=== PATIENT | female | born 1945 | race Caucasian/White ===

== ENCOUNTER 2017-08-02 18:56 | Inpatient (IN) ==
[2017-08-02] MEDS ORDERED: SODIUM CHLORIDE 0.9% 2,000 ML IV STA (19:20)
[2017-08-02 19:34] LABS: Basophils # 0.1 10*3/uL (0.0-0.2); Basophils % 0.5 % (0.0-0.8); Eosinophils % 0.1 % (0.00-10.9); Hematocrit 36.8 VOL% (35.7-47.0); Hemoglobin 11.5 GM/DL (12.0-16.0); Immature Granulocytes % 1.3 %; Immature Granulocytes Absolute 0.19 #; Lymphocytes % 6.9 % (21.3-54.2); Mean Corpuscular HGB Conc 31.3 GM/DL (32-36); Mean Corpuscular Hemoglobin 32 PG (27-34); Mean Corpuscular Volume 101.4 FL (87-102); Mean Platelet Volume 10.2 FL (9.6-12.0); Monocytes # 0.7 10*3/uL (0.11-0.8); Monocytes % 4.6 % (1.7-12.7); Neutrophils # 12.7 10*3/uL (1.4-7.4); Neutrophils % 86.6 % (38.7-73.9); Platelet Count 269 T/CUMM (130-400); Red Blood Count 3.63 MC/CUMM (3.8-5.5); Red Cell Distribution Width 12.1 % (9.3-17.3); White Blood Count 14.7 T/CUMM (4-12)
[2017-08-02 20:02] LABS: Albumin 3.6 G/DL (3.4-5.0); Bilirubin,Total 0.7 MG/DL (0.2-1.0); Calcium 9.3 MG/DL (8.5-10.1); Osmolality,Calculated 309.5 MOS/KG (273-304); Total Protein 6.4 G/DL (6.4-8.3)
[2017-08-02 20:04] LABS: Allen Test Positive
[2017-08-02] MEDS ORDERED: INSULIN REGULAR 100 UNIT/ML IV STA (20:05)
[2017-08-02 20:06] LABS: ABG Base Excess -25.3 MMOL/L (-2.5-2.5); ABG Oxygen Saturation 98.3 % (95-100); ABG PO2 173.7 MM HG (80-95); ABG TCO2 4.5 MMOL/L (23-27)
[2017-08-02 20:11] LABS: ABG PCO2 16.2 MM HG (35-48); ABG PH 7.012 (7.35-7.45)
[2017-08-02] MEDS ORDERED: SODIUM BICARBONATE 50 MEQ/50 ML VIAL IV STA (20:12)
[2017-08-02] MEDS ORDERED: SODIUM BICARBONATE 50 MEQ/50 ML SYRINGE IV ONE (20:19)
[2017-08-02] MEDS ORDERED: INSULIN REGULAR 100 UNIT/ML ONE (20:20)
[2017-08-02] MEDS ORDERED: SODIUM PHOSPHATE INJ 16.4 MMOL in SODIUM CHLORIDE 0.9% 250 ML IV PRN (20:52)
[2017-08-02] MEDS ORDERED: MAGNESIUM SULF RIDER 2 GM in PREMIX 1 EACH IV PRN (20:52)
[2017-08-02] MEDS ORDERED: SODIUM BICARB INJ 100 MEQ in STERILE WATER INJ 400 ML IV PRN (20:52)
[2017-08-02] MEDS ORDERED: DEXTROSE 50% 25 GM/50 ML VIAL IV PRN ×2 (20:52)
[2017-08-02] MEDS ORDERED: INSULIN REGULAR 100 UNIT/ML IV ONE ×2 (20:52→22:28)
[2017-08-02] MEDS ORDERED: SODIUM CHLORIDE 0.9% 1,000 ML IV ONE (20:52)
[2017-08-02] MEDS ORDERED: POTASSIUM CHLORIDE RIDER 10 MEQ in PREMIX 1 EACH IV PRN (20:52)
[2017-08-02] MEDS ORDERED: MAGNESIUM SULF RIDER 4 GM in PREMIX 1 EACH IV PRN (20:52)
[2017-08-02 20:56] LABS: Amorphous Crystals,Urine Occasional /HPF (Few); Apearance,Urine Slightly Hazy (Clear); Bilirubin,Urine Negative (Negative); Blood, Urine Small mg/dL (Negative); Glucose,Urine (UA) >=500 mg/dL (Negative); Hyaline Casts,Urine 1 /LPF (0-3); Ketones,Urine 20 mg/dL (Negative); Mucus,Urine Occasional /LPF (Occasional); Nitrite,Urine Negative (Negative); Protein,Urine Negative; RBC,Urine <1 /HPF (0-4); Urine Color Yellow (Yellow); Urine Specific Gravity 1.014 (1.001-1.035); Urine Urobilinogen < 2.0 EU/DL (0.2-1.0); WBC,Urine 1 /HPF (0-6)
[2017-08-02 20:57] LABS: Barbiturates Screen,Urine Negative (Negative); Benzodiazepines Screen,Urine Negative (Negative); Cannabinoid Screen,Urine Negative (Negative); Opiate Screen,Urine Negative (Negative); Phencyclidine Screen,Urine Negative (Negative)
[2017-08-02 21:07] LABS: Sedimentation Rate-Westergren 27 MM/HR (0-30)
[2017-08-02] MEDS: INSULIN REGULAR DRIP 100 ML IV SCH (21:50)
[2017-08-02] MEDS: ENOXAPARIN 30 MG/0.3 ML SYRINGE SUBCUT SCH (22:00)
[2017-08-02 22:17] LABS: Magnesium 2.1 MG/DL (1.8-2.4)
[2017-08-02 22:21] LABS: Calcium 8.3 MG/DL (8.5-10.1); Osmolality,Calculated 319.2 MOS/KG (273-304)
[2017-08-02 22:26] LABS: Free T4 (Free Thyroxine) 1.56 NG/DL (0.76-1.46); Thyroid Stimulating Hormone 0.101 uIU/ml (0.358-3.74); Troponin I Only 0.018 NG/ML (0.00-0.045)
[2017-08-02] MEDS: SODIUM CHLORIDE 0.9% 1,000 ML IV SCH (22:53)
[2017-08-03] MEDS: SODIUM CHLORIDE 0.9% 1,000 ML IV SCH ×3 (01:04→13:41)
[2017-08-03 01:13] LABS: Basophils % 0.1 % (0.0-0.8); Eosinophils % 0.1 % (0.00-10.9); Hematocrit 31.3 VOL% (35.7-47.0); Hemoglobin 10.6 GM/DL (12.0-16.0); Immature Granulocytes % 0.7 %; Lymphocytes # 0.6 10*3/uL (1.4-4.0); Lymphocytes % 3.8 % (21.3-54.2); Mean Corpuscular HGB Conc 33.9 GM/DL (32-36); Mean Corpuscular Hemoglobin 32 PG (27-34); Mean Corpuscular Volume 94.3 FL (87-102); Mean Platelet Volume 9.8 FL (9.6-12.0); Monocytes # 1.4 10*3/uL (0.11-0.8); Monocytes % 9.2 % (1.7-12.7); Neutrophils # 12.9 10*3/uL (1.4-7.4); Neutrophils % 86.1 % (38.7-73.9); Platelet Count 215 T/CUMM (130-400); Red Blood Count 3.32 MC/CUMM (3.8-5.5); White Blood Count 14.9 T/CUMM (4-12)
[2017-08-03] MEDS ORDERED: SODIUM CHLORIDE 0.9% 1,000 ML IV SCH (01:36)
[2017-08-03 01:42] LABS: Lymphocytes 2 % (20-55); Myelocytes 1 %; Segmented Neutrophils 92 % (50-85)
[2017-08-03 01:43] LABS: Calcium 7.8 MG/DL (8.5-10.1); Osmolality,Calculated 318.3 MOS/KG (273-304); Platelet Estimate Normal; Potassium 4.3 MMOL/L (3.5-5.1)
[2017-08-03 01:44] LABS: Total Cells Counted 100
[2017-08-03 02:07] LABS: Magnesium 1.8 MG/DL (1.8-2.4); Phosphorous 4.9 MG/DL (2.5-4.9)
[2017-08-03] MEDS ORDERED: ONDANSETRON 4 MG/2 ML VIAL IV PRN (02:12)
[2017-08-03 03:56] LABS: ABG Base Excess -20.9 MMOL/L (-2.5-2.5); ABG HCO3 9.3 MMOL/L (20-26); ABG Oxygen Saturation 98.2 % (95-100); ABG TCO2 6.6 MMOL/L (23-27); Allen Test Positive; Pt O2 Delivery Device Room Air
[2017-08-03 04:04] LABS: ABG PCO2 20.1 MM HG (35-48); ABG PH 7.148 (7.35-7.45)
[2017-08-03] MEDS ORDERED: INSULIN REGULAR 100 UNIT/ML IV ONE (05:36)
[2017-08-03 06:44] LABS: Calcium 7.9 MG/DL (8.5-10.1); Osmolality,Calculated 314.4 MOS/KG (273-304); Potassium 4.6 MMOL/L (3.5-5.1)
[2017-08-03] MEDS ORDERED: LEVOTHYROXINE 150 MCG TABLET PO SCH (09:00)
[2017-08-03 09:03] LABS: Calcium 7.8 MG/DL (8.5-10.1)
[2017-08-03] MEDS: SODIUM CHLOR 0.45% KCL 20 MEQ 20 MEQ/1,000 ML BAG IV SCH ×2 (09:35→19:02)
[2017-08-03 13:22] LABS: Calcium 8.1 MG/DL (8.5-10.1); Osmolality,Calculated 300.8 MOS/KG (273-304)
[2017-08-03] MEDS: DEXTROSE 5% KCL 20 MEQ 20 MEQ/1,000 ML BAG IV SCH (13:50)
[2017-08-03 17:01] LABS: Calcium 8.1 MG/DL (8.5-10.1); Osmolality,Calculated 295.8 MOS/KG (273-304); Potassium 3.7 MMOL/L (3.5-5.1)
[2017-08-03] MEDS: SODIUM CHLORIDE 0.45% 1,000 ML IV SCH (19:02)
[2017-08-03] MEDS: ENOXAPARIN 30 MG/0.3 ML SYRINGE SUBCUT SCH (21:01)
[2017-08-03 23:09] LABS: Osmolality,Calculated 289.1 MOS/KG (273-304); Potassium 4.3 MMOL/L (3.5-5.1)
[2017-08-04] MEDS ORDERED: INSULIN REGULAR 100 UNIT/ML ONE (00:31)
[2017-08-04] MEDS: INSULIN REGULAR 100 UNIT/ML SUBCUT SCH ×4 (00:38→14:16)
[2017-08-04] MEDS: DEXT 5% NACL 0.45% KCL 20 MEQ 20 MEQ/1,000 ML BAG IV SCH ×3 (00:38→18:39)
[2017-08-04] MEDS: SODIUM CHLORIDE 0.45% 1,000 ML IV SCH ×4 (00:41→16:19)
[2017-08-04] MEDS: SODIUM CHLOR 0.45% KCL 20 MEQ 20 MEQ/1,000 ML BAG IV SCH ×3 (01:39→18:38)
[2017-08-04] MEDS: INSULIN REGULAR DRIP 100 ML IV SCH (02:49)
[2017-08-04] MEDS: DEXTROSE 5% KCL 20 MEQ 20 MEQ/1,000 ML BAG IV SCH (02:49)
[2017-08-04 05:34] LABS: Calcium 8.5 MG/DL (8.5-10.1); Magnesium 1.6 MG/DL (1.8-2.4); Osmolality,Calculated 291.3 MOS/KG (273-304); Potassium 4.3 MMOL/L (3.5-5.1)
[2017-08-04] MEDS ORDERED: DILTIAZEM 50 MG/10 ML VIAL IV ONE (06:12)
[2017-08-04] MEDS ORDERED: SODIUM CHLORIDE 0.9% 100 ML IV ONE (06:13)
[2017-08-04] MEDS ORDERED: DILTIAZEM 100 MG VIAL.ADD IV ONE (06:13)
[2017-08-04] MEDS: DILTIAZEM INJ 100 MG in SODIUM CHLORIDE 0.9% 100 ML IV SCH (06:18)
[2017-08-04] MEDS ORDERED: INSULIN REGULAR DRIP 100 ML IV SCH (11:30)
[2017-08-04 12:02] LABS: Calcium 8.4 MG/DL (8.5-10.1); Osmolality,Calculated 292.1 MOS/KG (273-304); Potassium 4.2 MMOL/L (3.5-5.1)
[2017-08-04] MEDS: SOTALOL 80 MG TABLET PO SCH ×2 (14:24→20:48)
[2017-08-04 14:50] LABS: Calcium 8.2 MG/DL (8.5-10.1); Osmolality,Calculated 289.8 MOS/KG (273-304)
[2017-08-04] MEDS ORDERED: DEXTROSE 50% 25 GM/50 ML VIAL IV PRN ×3 (15:53→16:25)
[2017-08-04] MEDS ORDERED: GLUCAGON 1 MG VIAL IM PRN ×3 (15:53→16:25)
[2017-08-04] MEDS ORDERED: INSULIN REGULAR 100 UNIT/ML SUBCUT SCH (15:55)
[2017-08-04] MEDS: INSULIN GLARGINE 100 UNIT/ML SUBCUT SCH (16:37)
[2017-08-04] MEDS: INSULIN LISPRO 100 UNIT/ML SUBCUT SCH ×3 (16:38→23:29)
[2017-08-04 19:04] LABS: Calcium 8.4 MG/DL (8.5-10.1); Osmolality,Calculated 287.1 MOS/KG (273-304); Potassium 4.1 MMOL/L (3.5-5.1)
[2017-08-04] MEDS ORDERED: ENOXAPARIN 40 MG/0.4 ML SYRINGE SUBCUT SCH (21:00)
[2017-08-04] MEDS ORDERED: PHENOL 1.4% THROAT SPRAY 177 ML BOTTLE PO PRN (23:34)
[2017-08-05 00:12] LABS: Calcium 8.7 MG/DL (8.5-10.1); Osmolality,Calculated 281.3 MOS/KG (273-304); Potassium 3.9 MMOL/L (3.5-5.1)
[2017-08-05 03:42] LABS: Calcium 8.8 MG/DL (8.5-10.1); Osmolality,Calculated 282.1 MOS/KG (273-304); Potassium 4.3 MMOL/L (3.5-5.1)
[2017-08-05] MEDS: INSULIN LISPRO 100 UNIT/ML SUBCUT SCH ×6 (04:51→21:30)
[2017-08-05] MEDS ORDERED: INSULIN LISPRO 100 UNIT/ML SUBCUT SCH ×2 (05:10→06:00)
[2017-08-05 05:36] LABS: Calcium 8.6 MG/DL (8.5-10.1); Osmolality,Calculated 282.1 MOS/KG (273-304)
[2017-08-05] MEDS: hydrALAZINE 20 MG/1 ML VIAL IV PRN ×2 (05:51→12:13)
[2017-08-05] MEDS: SODIUM CHLORIDE 0.45% 1,000 ML IV SCH (06:22)
[2017-08-05] MEDS: DILTIAZEM INJ 100 MG in SODIUM CHLORIDE 0.9% 100 ML IV SCH (06:32)
[2017-08-05 07:52] LABS: Calcium 8.2 MG/DL (8.5-10.1); Osmolality,Calculated 279.3 MOS/KG (273-304); Potassium 3.8 MMOL/L (3.5-5.1)
[2017-08-05] MEDS ORDERED: ACETAMINOPHEN 325 MG TABLET PO PRN (08:46)
[2017-08-05] MEDS: SOTALOL 80 MG TABLET PO SCH ×2 (09:19→20:34)
[2017-08-05] MEDS: APIXABAN 5 MG TABLET PO SCH ×2 (09:20→20:34)
[2017-08-05] MEDS: INSULIN GLARGINE 100 UNIT/ML SUBCUT SCH (10:44)
[2017-08-05] MEDS ORDERED: INSULIN GLARGINE 100 UNIT/ML SUBCUT SCH (21:00)
[2017-08-06] MEDS: INSULIN LISPRO 100 UNIT/ML SUBCUT SCH ×3 (02:21→10:36)
[2017-08-06] MEDS: SOTALOL 80 MG TABLET PO SCH (08:14)
[2017-08-06] MEDS: APIXABAN 5 MG TABLET PO SCH (08:14)
[2017-08-06 08:18] VITALS: BP 168/85
== END 2017-08-06 11:20 | disposition home or self-care (01) | DRG 639 ==
LOC: EDUNIT# → EDBD → N.ED 18:56 → SUATTDRO 20:20 → N.EDINP 20:20 → N.CC 20:52
PROVIDERS: ADMIT Hospitalist; ATTEND Internal Medicine

== ENCOUNTER 2017-08-08 22:39 | Inpatient (IN) ==
[2017-08-08] MEDS ORDERED: SODIUM CHLORIDE 0.9% 1,000 ML IV STA (23:11)
[2017-08-08] MEDS ORDERED: METOCLOPRAMIDE 10 MG/2 ML VIAL IV STA (23:11)
[2017-08-08] MEDS ORDERED: LEVOFLOXACIN INJ 750 MG in PREMIX 1 EACH IV STA (23:11)
[2017-08-08] MEDS ORDERED: ONDANSETRON 4 MG/2 ML VIAL IV STA (23:11)
[2017-08-08] MEDS ORDERED: INSULIN REGULAR 100 UNIT/ML IV STA (23:16)
[2017-08-08] MEDS ORDERED: LEVOFLOXACIN INJ 150 ML IV ONE (23:29)
[2017-08-08] MEDS ORDERED: ONDANSETRON 4 MG/2 ML VIAL ONE (23:29)
[2017-08-08] MEDS ORDERED: METOCLOPRAMIDE 10 MG/2 ML VIAL ONE (23:29)
[2017-08-08] MEDS ORDERED: INSULIN REGULAR 100 UNIT/ML ONE (23:33)
[2017-08-09 02:10] LABS: PT Patient Result 10.7 SECS; Partial Thromboplastin Time 26.4 SECS (0-40)
[2017-08-09 02:13] LABS: Basophils % 0.3 % (0.0-0.8); Eosinophils % 0.1 % (0.00-10.9); Hematocrit 30.9 VOL% (35.7-47.0); Hemoglobin 10.4 GM/DL (12.0-16.0); Immature Granulocytes % 1.4 %; Immature Granulocytes Absolute 0.15 #; Lymphocytes # 1.6 10*3/uL (1.4-4.0); Lymphocytes % 14.8 % (21.3-54.2); Mean Corpuscular HGB Conc 33.7 GM/DL (32-36); Mean Corpuscular Hemoglobin 31 PG (27-34); Mean Corpuscular Volume 93.1 FL (87-102); Mean Platelet Volume 9.9 FL (9.6-12.0); Monocytes % 9.5 % (1.7-12.7); Neutrophils # 7.9 10*3/uL (1.4-7.4); Neutrophils % 73.9 % (38.7-73.9); Platelet Count 264 T/CUMM (130-400); Red Blood Count 3.32 MC/CUMM (3.8-5.5); Red Cell Distribution Width 12.3 % (9.3-17.3); White Blood Count 10.7 T/CUMM (4-12)
[2017-08-09 02:20] LABS: Lactic Acid 1.8 MMOL/L (0.4-2.0)
[2017-08-09 02:27] LABS: Alanine Aminotransferase 16 U/L (13-56); Albumin 2.8 G/DL (3.4-5.0); Alkaline Phosphatase 103 U/L (45-117); Aspartate Amino Transferase 15 U/L (0-37); Blood Urea Nitrogen 31 MG/DL (7-18); Calcium 8.9 MG/DL (8.5-10.1); Glucose 272 MG/DL (74-106); Osmolality,Calculated 282.4 MOS/KG (273-304); Potassium 3.8 MMOL/L (3.5-5.1); Sodium 133 MMOL/L (136-145); Total Protein 5.4 G/DL (6.4-8.3)
[2017-08-09 03:57] LABS: VBG Base Excess -6.4 MEQ/L (0-4); VBG HCO3 18.2 MEQ/L (24-28); VBG Oxygen Saturation 98.9 %; VBG PCO2 32.7 MMHG (41-51); VBG PH 7.363; VBG PO2 232.4 MMHG (17-40)
[2017-08-09] MEDS ORDERED: ONDANSETRON 4 MG/2 ML VIAL IV PRN (05:43)
[2017-08-09] MEDS ORDERED: ACETAMINOPHEN 325 MG TABLET PO PRN (05:43)
[2017-08-09] MEDS ORDERED: GLUCAGON 1 MG VIAL IM PRN ×2 (05:53→16:47)
[2017-08-09] MEDS ORDERED: DEXTROSE 50% 25 GM/50 ML VIAL IV PRN ×3 (05:53→16:47)
[2017-08-09] MEDS ORDERED: LORATADINE 10 MG TABLET PO PRN (05:56)
[2017-08-09] MEDS ORDERED: MELOXICAM 7.5 MG TABLET PO PRN (05:56)
[2017-08-09] MEDS ORDERED: PANTOPRAZOLE 40 MG TABLET PO PRN (05:56)
[2017-08-09] MEDS: SODIUM CHLORIDE 0.9% 1,000 ML IV SCH ×3 (07:30→20:56)
[2017-08-09 07:32] LABS: Calcium 8.3 MG/DL (8.5-10.1)
[2017-08-09] MEDS: LEVOTHYROXINE 150 MCG TABLET PO SCH (07:38)
[2017-08-09] MEDS: ASPIRIN EC 81 MG TABLET PO SCH (08:53)
[2017-08-09] MEDS: APIXABAN 5 MG TABLET PO SCH ×2 (08:53→20:58)
[2017-08-09] MEDS: INSULIN LISPRO 100 UNIT/ML SUBCUT SCH ×8 (08:53→23:50)
[2017-08-09] MEDS: ALPRAZolam 0.5 MG TABLET PO SCH ×2 (08:54→09:07)
[2017-08-09] MEDS: SOTALOL 80 MG TABLET PO SCH ×2 (08:58→20:57)
[2017-08-09] MEDS ORDERED: MAGNESIUM OXIDE 400 MG TABLET PO SCH (09:00)
[2017-08-09 11:30] LABS: Calcium 8.7 MG/DL (8.5-10.1); Osmolality,Calculated 280.2 MOS/KG (273-304); Potassium 4.1 MMOL/L (3.5-5.1)
[2017-08-09] MEDS ORDERED: INSULIN REGULAR DRIP 100 ML IV SCH (16:47)
[2017-08-09] MEDS ORDERED: SODIUM PHOSPHATE INJ 18.7 MMOL in SODIUM CHLORIDE 0.9% 250 ML IV PRN (16:47)
[2017-08-09] MEDS ORDERED: MAGNESIUM SULF RIDER 4 GM in PREMIX 1 EACH IV PRN (16:47)
[2017-08-09] MEDS ORDERED: SODIUM CHLORIDE 0.9% 1,000 ML IV ONE (16:47)
[2017-08-09] MEDS ORDERED: POTASSIUM CHLORIDE RIDER 10 MEQ in PREMIX 1 EACH IV PRN (16:47)
[2017-08-09] MEDS ORDERED: SODIUM BICARB INJ 100 MEQ in STERILE WATER INJ 400 ML IV PRN (16:47)
[2017-08-09] MEDS: DEXTROSE 5% NACL 0.9% 1,000 ML IV SCH ×2 (17:15→23:51)
[2017-08-09 18:25] LABS: Magnesium 1.3 MG/DL (1.8-2.4); Phosphorous 1.5 MG/DL (2.5-4.9)
[2017-08-09 18:26] LABS: Calcium 8.3 MG/DL (8.5-10.1); Osmolality,Calculated 273.8 MOS/KG (273-304); Potassium 3.5 MMOL/L (3.5-5.1)
[2017-08-09] MEDS: MAGNESIUM SULF RIDER 2 GM in PREMIX 1 EACH IV PRN ×2 (18:55→21:04)
[2017-08-09] MEDS ORDERED: SODIUM CHLORIDE 0.9% 1,000 ML IV SCH (20:07)
[2017-08-09] MEDS ORDERED: POTASSIUM CHLORIDE 20 MEQ TABLET PO PRN (20:36)
[2017-08-09] MEDS ORDERED: INSULIN GLARGINE 100 UNIT/ML SUBCUT SCH (21:00)
[2017-08-10 01:24] LABS: Osmolality,Calculated 279.7 MOS/KG (273-304); Potassium 3.9 MMOL/L (3.5-5.1)
[2017-08-10 04:03] LABS: Apearance,Urine CLEAR (Clear); Bacteria,Urine Occasional /HPF (Few); Bilirubin,Urine Negative (Negative); Blood, Urine Small mg/dL (Negative); Glucose,Urine (UA) 150 mg/dL (Negative); Ketones,Urine 20 mg/dL (Negative); Nitrite,Urine Negative (Negative); Protein,Urine Negative; RBC,Urine 1 /HPF (0-4); Squamous Epithelial Cell,Urine Occasional /HPF (0-10); Urine Color Yellow (Yellow); Urine Urobilinogen < 2.0 EU/DL (0.2-1.0); WBC,Urine 4 /HPF (0-6)
[2017-08-10] MEDS: SODIUM CHLORIDE 0.9% 1,000 ML IV SCH (04:07)
[2017-08-10] MEDS: INSULIN LISPRO 100 UNIT/ML SUBCUT SCH ×5 (04:07→21:12)
[2017-08-10 06:05] LABS: Basophils % 0.2 % (0.0-0.8); Eosinophils # 0.1 10*3/uL (0.0-0.87); Eosinophils % 1.6 % (0.00-10.9); Hematocrit 28.2 VOL% (35.7-47.0); Hemoglobin 9.4 GM/DL (12.0-16.0); Immature Granulocytes % 0.5 %; Immature Granulocytes Absolute 0.03 #; Lymphocytes # 1.7 10*3/uL (1.4-4.0); Lymphocytes % 29.9 % (21.3-54.2); Mean Corpuscular HGB Conc 33.3 GM/DL (32-36); Mean Corpuscular Hemoglobin 32 PG (27-34); Mean Corpuscular Volume 94.6 FL (87-102); Mean Platelet Volume 9.2 FL (9.6-12.0); Monocytes # 0.5 10*3/uL (0.11-0.8); Monocytes % 8.9 % (1.7-12.7); Neutrophils # 3.3 10*3/uL (1.4-7.4); Neutrophils % 58.9 % (38.7-73.9); Platelet Count 210 T/CUMM (130-400); Red Blood Count 2.98 MC/CUMM (3.8-5.5); Red Cell Distribution Width 12.7 % (9.3-17.3); White Blood Count 5.6 T/CUMM (4-12)
[2017-08-10 06:38] LABS: Osmolality,Calculated 281.7 MOS/KG (273-304); Potassium 3.7 MMOL/L (3.5-5.1)
[2017-08-10 06:44] LABS: Albumin 2.4 G/DL (3.4-5.0); Bilirubin,Total 0.6 MG/DL (0.2-1.0); Calcium 8.1 MG/DL (8.5-10.1); Osmolality,Calculated 281.7 MOS/KG (273-304); Potassium 3.6 MMOL/L (3.5-5.1); Total Protein 4.6 G/DL (6.4-8.3)
[2017-08-10 06:45] LABS: Magnesium 2.1 MG/DL (1.8-2.4); Phosphorous 1.4 MG/DL (2.5-4.9)
[2017-08-10] MEDS: DEXTROSE 5% NACL 0.9% 1,000 ML IV SCH ×2 (07:04→09:59)
[2017-08-10] MEDS: LEVOTHYROXINE 150 MCG TABLET PO SCH (07:06)
[2017-08-10] MEDS ORDERED: SODIUM CHLORIDE 0.45% 1,000 ML IV SCH ×2 (08:07→10:00)
[2017-08-10] MEDS: APIXABAN 5 MG TABLET PO SCH ×2 (08:29→21:13)
[2017-08-10] MEDS: SOTALOL 80 MG TABLET PO SCH ×2 (08:29→21:12)
[2017-08-10] MEDS: ASPIRIN EC 81 MG TABLET PO SCH (08:29)
[2017-08-10] MEDS ORDERED: INSULIN GLARGINE 100 UNIT/ML SUBCUT SCH (10:00)
[2017-08-10] MEDS ORDERED: SODIUM PHOSPHATE INJ 30 MMOL in SODIUM CHLORIDE 0.9% 250 ML IV ONE (10:00)
[2017-08-10 13:33] LABS: Calcium 8.6 MG/DL (8.5-10.1); Osmolality,Calculated 276.8 MOS/KG (273-304); Potassium 4.1 MMOL/L (3.5-5.1)
[2017-08-10] MEDS ORDERED: FUROSEMIDE 20 MG/2 ML VIAL IV ONE (16:01)
[2017-08-11] MEDS: INSULIN LISPRO 100 UNIT/ML SUBCUT SCH ×3 (00:54→10:30)
[2017-08-11 06:04] LABS: Calcium 8.1 MG/DL (8.5-10.1); Osmolality,Calculated 275.4 MOS/KG (273-304); Potassium 3.1 MMOL/L (3.5-5.1)
[2017-08-11] MEDS: LEVOTHYROXINE 150 MCG TABLET PO SCH (07:38)
[2017-08-11] MEDS ORDERED: INSULIN GLARGINE 100 UNIT/ML SUBCUT SCH ×2 (07:53→09:45)
[2017-08-11] MEDS ORDERED: POTASSIUM CHLORIDE 20 MEQ TABLET PO SCH (08:00)
[2017-08-11 08:34] VITALS: BP 147/97
[2017-08-11] MEDS: SOTALOL 80 MG TABLET PO SCH (10:30)
[2017-08-11] MEDS: APIXABAN 5 MG TABLET PO SCH (10:30)
[2017-08-11] MEDS: ASPIRIN EC 81 MG TABLET PO SCH (10:31)
== END 2017-08-11 12:11 | disposition home or self-care (01) | DRG 638 ==
LOC: EDBD → EDUNIT# → N.ED 22:39 → N.EDINP 08-09 05:32 → SUATTDRO 08-09 05:32 → N.TELES 08-09 06:19 → N.ICU 08-09 16:43 → N.2E 08-10 13:41
PROVIDERS: ADMIT Internal Medicine; ATTEND Internal Medicine

== ENCOUNTER 2017-12-10 22:10 | Inpatient (IN) ==
[2017-12-10] MEDS ORDERED: SODIUM CHLORIDE 0.9% 500 ML IV STA (22:49)
[2017-12-10 23:33] LABS: Basophils % 0.6 % (0.0-0.8); Eosinophils # 0.2 10*3/uL (0.0-0.87); Hematocrit 33.6 VOL% (35.7-47.0); Hemoglobin 11.5 GM/DL (12.0-16.0); Immature Granulocytes % 0.2 %; Immature Granulocytes Absolute 0.01 #; Lymphocytes # 1.4 10*3/uL (1.4-4.0); Lymphocytes % 22.3 % (21.3-54.2); Mean Corpuscular HGB Conc 34.2 GM/DL (32-36); Mean Corpuscular Hemoglobin 32 PG (27-34); Mean Corpuscular Volume 92.3 FL (87-102); Mean Platelet Volume 10.2 FL (9.6-12.0); Monocytes # 0.4 10*3/uL (0.11-0.8); Monocytes % 6.1 % (1.7-12.7); Neutrophils # 4.3 10*3/uL (1.4-7.4); Neutrophils % 67.8 % (38.7-73.9); Platelet Count 172 T/CUMM (130-400); Red Blood Count 3.64 MC/CUMM (3.8-5.5); Red Cell Distribution Width 12.6 % (9.3-17.3); White Blood Count 6.4 T/CUMM (4-12)
[2017-12-10] MEDS ORDERED: HYDROmorphone 2 MG/1 ML VIAL IV ONE (23:41)
[2017-12-10] MEDS ORDERED: ONDANSETRON 4 MG/2 ML VIAL IV STA (23:41)
[2017-12-10] MEDS ORDERED: HYDROmorphone 2 MG/1 ML VIAL ONE (23:42)
[2017-12-10] MEDS ORDERED: ONDANSETRON 4 MG/2 ML VIAL ONE (23:42)
[2017-12-10 23:53] LABS: PT Patient Result 10.7 SECS
[2017-12-11] LABS: Lactic Acid 2.6 MMOL/L (0.4-2.0)
[2017-12-11 00:01] LABS: Alanine Aminotransferase 22 U/L (13-56); Albumin 3.8 G/DL (3.4-5.0); Alkaline Phosphatase 112 U/L (45-117); Aspartate Amino Transferase 30 U/L (0-37); Blood Urea Nitrogen 19 MG/DL (7-18); Calcium 9.5 MG/DL (8.5-10.1); Glucose 371 MG/DL (74-106); Osmolality,Calculated 289.8 MOS/KG (273-304); Potassium 4.3 MMOL/L (3.5-5.1); Sodium 137 MMOL/L (136-145); Troponin I Only < 0.015 NG/ML (0.00-0.045)
[2017-12-11] MEDS ORDERED: MAGNESIUM SULF RIDER 2 GM in PREMIX 1 EACH IV STA (00:25)
[2017-12-11 00:27] LABS: Apearance,Urine CLEAR (Clear); Bilirubin,Urine Negative (Negative); Blood, Urine Small mg/dL (Negative); Glucose,Urine (UA) >=500 mg/dL (Negative); Ketones,Urine 20 mg/dL (Negative); Nitrite,Urine Negative (Negative); Protein,Urine Negative; RBC,Urine 1 /HPF (0-4); Squamous Epithelial Cell,Urine Occasional /HPF (0-10); Urine Color Straw (Yellow); Urine Specific Gravity 1.013 (1.001-1.035); Urine Urobilinogen < 2.0 EU/DL (0.2-1.0); WBC,Urine 1 /HPF (0-6)
[2017-12-11] MEDS ORDERED: INSULIN REGULAR 100 UNIT/ML SUBCUT STA (00:29)
[2017-12-11] MEDS ORDERED: SODIUM CHLORIDE 0.9% 100 ML IV ONE (00:47)
[2017-12-11] MEDS ORDERED: MAGNESIUM SULF RIDER 50 ML IV ONE (00:47)
[2017-12-11] MEDS ORDERED: PIPERACILLIN/TAZOBACTAM 3,375 MG VIAL IV ONE (00:47)
[2017-12-11] MEDS ORDERED: INSULIN REGULAR 100 UNIT/ML ONE (00:49)
[2017-12-11 00:50] LABS: Sedimentation Rate-Westergren 41 MM/HR (0-30)
[2017-12-11] MEDS ORDERED: PIPERACILLIN/TAZOBACTAM 3,375 MG in SODIUM CHLORIDE 0.9% 100 ML IV SCH (01:00)
[2017-12-11] MEDS ORDERED: IBUPROFEN 600 MG TABLET PO PRN (01:34)
[2017-12-11] MEDS ORDERED: MELOXICAM 7.5 MG TABLET PO PRN (01:34)
[2017-12-11] MEDS ORDERED: ONDANSETRON 4 MG/2 ML VIAL IV PRN (01:40)
[2017-12-11] MEDS ORDERED: GLUCAGON 1 MG VIAL IM PRN (01:40)
[2017-12-11] MEDS ORDERED: DEXTROSE 50% 25 GM/50 ML VIAL IV PRN (01:40)
[2017-12-11] MEDS ORDERED: ACETAMINOPHEN 325 MG TABLET PO PRN (01:40)
[2017-12-11] MEDS: LEVOTHYROXINE 150 MCG TABLET PO SCH (05:32)
[2017-12-11] MEDS: CEFTAROLINE 600 MG in SODIUM CHLORIDE 0.9% 100 ML IV SCH ×2 (05:32→21:19)
[2017-12-11 06:33] LABS: Basophils % 0.6 % (0.0-0.8); Eosinophils # 0.2 10*3/uL (0.0-0.87); Eosinophils % 3.3 % (0.00-10.9); Hematocrit 29.6 VOL% (35.7-47.0); Hemoglobin 9.5 GM/DL (12.0-16.0); Immature Granulocytes % 0.3 %; Immature Granulocytes Absolute 0.02 #; Lymphocytes # 1.4 10*3/uL (1.4-4.0); Lymphocytes % 20.4 % (21.3-54.2); Mean Corpuscular HGB Conc 32.1 GM/DL (32-36); Mean Corpuscular Hemoglobin 31 PG (27-34); Mean Corpuscular Volume 96.1 FL (87-102); Mean Platelet Volume 9.7 FL (9.6-12.0); Monocytes # 0.7 10*3/uL (0.11-0.8); Monocytes % 9.7 % (1.7-12.7); Neutrophils # 4.5 10*3/uL (1.4-7.4); Neutrophils % 65.7 % (38.7-73.9); Platelet Count 132 T/CUMM (130-400); Red Blood Count 3.08 MC/CUMM (3.8-5.5); Red Cell Distribution Width 12.6 % (9.3-17.3); White Blood Count 6.9 T/CUMM (4-12)
[2017-12-11 07:15] LABS: Albumin 2.9 G/DL (3.4-5.0); Bilirubin,Total 0.8 MG/DL (0.2-1.0); Calcium 8.9 MG/DL (8.5-10.1); Osmolality,Calculated 283.1 MOS/KG (273-304); Potassium 4.7 MMOL/L (3.5-5.1); Total Protein 5.5 G/DL (6.4-8.3)
[2017-12-11] MEDS: MAGNESIUM GLUCONATE 500 MG TABLET PO SCH ×2 (08:25→21:24)
[2017-12-11] MEDS: CARVEDILOL 3.125 MG TABLET PO SCH ×2 (08:26→21:23)
[2017-12-11] MEDS: ISOSORBIDE MONONITRATE 30 MG TABLET PO SCH (08:27)
[2017-12-11] MEDS: FAMOTIDINE 20 MG TABLET PO SCH (08:27)
[2017-12-11] MEDS: LORATADINE 10 MG TABLET PO SCH (08:28)
[2017-12-11] MEDS: ASPIRIN EC 81 MG TABLET PO SCH (08:28)
[2017-12-11] MEDS: APIXABAN 5 MG TABLET PO SCH ×2 (08:28→21:23)
[2017-12-11] MEDS: INSULIN LISPRO 100 UNIT/ML SUBCUT SCH ×4 (08:29→21:32)
[2017-12-11] MEDS: ALPRAZolam 0.5 MG TABLET PO SCH ×2 (08:29→21:23)
[2017-12-11] MEDS ORDERED: INSULIN REGULAR 100 UNIT/ML SUBCUT SCH (09:00)
[2017-12-11] MEDS: INSULIN NPH 100 UNIT/ML SUBCUT SCH (09:53)
[2017-12-11] MEDS: HYDROmorphone 2 MG/1 ML VIAL IV PRN (16:48)
[2017-12-12 06:03] LABS: Basophils % 0.4 % (0.0-0.8); Eosinophils # 0.2 10*3/uL (0.0-0.87); Eosinophils % 2.7 % (0.00-10.9); Immature Granulocytes % 0.4 %; Immature Granulocytes Absolute 0.02 #; Lymphocytes # 1.2 10*3/uL (1.4-4.0); Lymphocytes % 20.8 % (21.3-54.2); Mean Corpuscular HGB Conc 33.3 GM/DL (32-36); Mean Corpuscular Hemoglobin 31 PG (27-34); Mean Corpuscular Volume 92.2 FL (87-102); Mean Platelet Volume 10.2 FL (9.6-12.0); Monocytes # 0.7 10*3/uL (0.11-0.8); Monocytes % 12.5 % (1.7-12.7); Neutrophils # 3.5 10*3/uL (1.4-7.4); Neutrophils % 63.2 % (38.7-73.9); Platelet Count 152 T/CUMM (130-400); Red Blood Count 3.58 MC/CUMM (3.8-5.5); Red Cell Distribution Width 12.6 % (9.3-17.3); White Blood Count 5.6 T/CUMM (4-12)
[2017-12-12 06:18] LABS: Osmolality,Calculated 281.7 MOS/KG (273-304); Potassium 4.3 MMOL/L (3.5-5.1)
[2017-12-12] MEDS: LEVOTHYROXINE 150 MCG TABLET PO SCH (06:29)
[2017-12-12] MEDS: HYDROmorphone 2 MG/1 ML VIAL IV PRN (06:48)
[2017-12-12] MEDS: INSULIN LISPRO 100 UNIT/ML SUBCUT SCH (07:57)
[2017-12-12] MEDS: FAMOTIDINE 20 MG TABLET PO SCH (08:31)
[2017-12-12] MEDS: LORATADINE 10 MG TABLET PO SCH (08:32)
[2017-12-12] MEDS: MAGNESIUM GLUCONATE 500 MG TABLET PO SCH ×2 (08:32→21:38)
[2017-12-12] MEDS: INSULIN NPH 100 UNIT/ML SUBCUT SCH (08:33)
[2017-12-12] MEDS: ASPIRIN EC 81 MG TABLET PO SCH (08:33)
[2017-12-12] MEDS: CARVEDILOL 3.125 MG TABLET PO SCH ×2 (08:33→21:38)
[2017-12-12] MEDS: ISOSORBIDE MONONITRATE 30 MG TABLET PO SCH (08:33)
[2017-12-12] MEDS: ALPRAZolam 0.5 MG TABLET PO SCH ×2 (08:33→21:38)
[2017-12-12] MEDS: APIXABAN 5 MG TABLET PO SCH ×2 (08:33→21:38)
[2017-12-12] MEDS: CEFTAROLINE 600 MG in SODIUM CHLORIDE 0.9% 100 ML IV SCH ×2 (08:35→21:38)
[2017-12-12] MEDS: INSULIN REGULAR 100 UNIT/ML SUBCUT SCH ×3 (10:41→21:39)
[2017-12-13 04:02] LABS: Basophils % 0.7 % (0.0-0.8); Eosinophils # 0.2 10*3/uL (0.0-0.87); Eosinophils % 2.8 % (0.00-10.9); Hematocrit 35.4 VOL% (35.7-47.0); Hemoglobin 11.5 GM/DL (12.0-16.0); Immature Granulocytes % 0.2 %; Immature Granulocytes Absolute 0.01 #; Lymphocytes # 1.7 10*3/uL (1.4-4.0); Lymphocytes % 27.3 % (21.3-54.2); Mean Corpuscular HGB Conc 32.5 GM/DL (32-36); Mean Corpuscular Hemoglobin 31 PG (27-34); Mean Corpuscular Volume 94.1 FL (87-102); Mean Platelet Volume 10.6 FL (9.6-12.0); Monocytes # 0.6 10*3/uL (0.11-0.8); Monocytes % 9.8 % (1.7-12.7); Neutrophils # 3.7 10*3/uL (1.4-7.4); Neutrophils % 59.2 % (38.7-73.9); Platelet Count 180 T/CUMM (130-400); Red Blood Count 3.76 MC/CUMM (3.8-5.5); Red Cell Distribution Width 12.2 % (9.3-17.3); White Blood Count 6.2 T/CUMM (4-12)
[2017-12-13 04:30] LABS: Calcium 9.2 MG/DL (8.5-10.1); Osmolality,Calculated 285.5 MOS/KG (273-304); Potassium 4.3 MMOL/L (3.5-5.1)
[2017-12-13] MEDS: LEVOTHYROXINE 150 MCG TABLET PO SCH (06:36)
[2017-12-13] MEDS: CEFTAROLINE 600 MG in SODIUM CHLORIDE 0.9% 100 ML IV SCH ×2 (09:13→20:55)
[2017-12-13] MEDS: INSULIN NPH 100 UNIT/ML SUBCUT SCH (09:14)
[2017-12-13] MEDS: ISOSORBIDE MONONITRATE 30 MG TABLET PO SCH (09:14)
[2017-12-13] MEDS: INSULIN REGULAR 100 UNIT/ML SUBCUT SCH ×5 (09:14→21:01)
[2017-12-13] MEDS: CARVEDILOL 3.125 MG TABLET PO SCH ×2 (09:14→20:55)
[2017-12-13] MEDS: LORATADINE 10 MG TABLET PO SCH (09:14)
[2017-12-13] MEDS: ASPIRIN EC 81 MG TABLET PO SCH (09:14)
[2017-12-13] MEDS: ALPRAZolam 0.5 MG TABLET PO SCH ×2 (09:15→20:55)
[2017-12-13] MEDS: MAGNESIUM GLUCONATE 500 MG TABLET PO SCH ×2 (09:15→20:54)
[2017-12-13] MEDS: FAMOTIDINE 20 MG TABLET PO SCH (09:15)
[2017-12-13] MEDS: APIXABAN 5 MG TABLET PO SCH ×2 (09:15→20:55)
[2017-12-13] MEDS ORDERED: INSULIN NPH 100 UNIT/ML SUBCUT SCH (09:25)
[2017-12-13] MEDS ORDERED: MAGNESIUM SULF INJ 3 GM in SODIUM CHLORIDE 0.9% 100 ML IV ONE (10:00)
[2017-12-14 05:33] LABS: Basophils % 0.6 % (0.0-0.8); Eosinophils # 0.3 10*3/uL (0.0-0.87); Eosinophils % 4.7 % (0.00-10.9); Hematocrit 31.4 VOL% (35.7-47.0); Hemoglobin 10.8 GM/DL (12.0-16.0); Immature Granulocytes % 0.4 %; Immature Granulocytes Absolute 0.02 #; Lymphocytes # 1.7 10*3/uL (1.4-4.0); Lymphocytes % 32.4 % (21.3-54.2); Mean Corpuscular HGB Conc 34.4 GM/DL (32-36); Mean Corpuscular Hemoglobin 31 PG (27-34); Mean Corpuscular Volume 90.2 FL (87-102); Mean Platelet Volume 10.1 FL (9.6-12.0); Monocytes # 0.6 10*3/uL (0.11-0.8); Monocytes % 11.4 % (1.7-12.7); Neutrophils # 2.7 10*3/uL (1.4-7.4); Neutrophils % 50.5 % (38.7-73.9); Platelet Count 173 T/CUMM (130-400); Red Blood Count 3.48 MC/CUMM (3.8-5.5); Red Cell Distribution Width 12.3 % (9.3-17.3); White Blood Count 5.3 T/CUMM (4-12)
[2017-12-14 05:57] LABS: Calcium 8.9 MG/DL (8.5-10.1); Osmolality,Calculated 284.7 MOS/KG (273-304)
[2017-12-14] MEDS: LEVOTHYROXINE 150 MCG TABLET PO SCH (06:01)
[2017-12-14] MEDS ORDERED: MAGNESIUM SULF INJ 3 GM in SODIUM CHLORIDE 0.9% 100 ML IV ONE (07:46)
[2017-12-14] MEDS: CEFTAROLINE 600 MG in SODIUM CHLORIDE 0.9% 100 ML IV SCH ×2 (08:50→20:38)
[2017-12-14] MEDS: POLYETHYLENE GLYCOL POWDER 17 GM PACK PO SCH (08:50)
[2017-12-14] MEDS: INSULIN NPH 100 UNIT/ML SUBCUT SCH (08:50)
[2017-12-14] MEDS: APIXABAN 5 MG TABLET PO SCH ×2 (08:51→20:40)
[2017-12-14] MEDS: ISOSORBIDE MONONITRATE 30 MG TABLET PO SCH (08:51)
[2017-12-14] MEDS: CARVEDILOL 3.125 MG TABLET PO SCH ×2 (08:51→20:40)
[2017-12-14] MEDS: LORATADINE 10 MG TABLET PO SCH (08:51)
[2017-12-14] MEDS: MAGNESIUM GLUCONATE 500 MG TABLET PO SCH ×2 (08:51→20:40)
[2017-12-14] MEDS: ASPIRIN EC 81 MG TABLET PO SCH (08:51)
[2017-12-14] MEDS: ALPRAZolam 0.5 MG TABLET PO SCH ×2 (08:51→20:41)
[2017-12-14] MEDS: FAMOTIDINE 20 MG TABLET PO SCH (08:51)
[2017-12-14] MEDS: INSULIN REGULAR 100 UNIT/ML SUBCUT SCH ×4 (08:52→20:48)
[2017-12-15] MEDS: LEVOTHYROXINE 150 MCG TABLET PO SCH (05:43)
[2017-12-15 06:40] LABS: Calcium 8.9 MG/DL (8.5-10.1); Osmolality,Calculated 284.5 MOS/KG (273-304); Potassium 4.3 MMOL/L (3.5-5.1)
[2017-12-15] MEDS: INSULIN REGULAR 100 UNIT/ML SUBCUT SCH ×4 (09:08→22:55)
[2017-12-15] MEDS: ASPIRIN EC 81 MG TABLET PO SCH (10:00)
[2017-12-15] MEDS: MAGNESIUM GLUCONATE 500 MG TABLET PO SCH ×2 (10:00→20:29)
[2017-12-15] MEDS: FAMOTIDINE 20 MG TABLET PO SCH (10:00)
[2017-12-15] MEDS: ISOSORBIDE MONONITRATE 30 MG TABLET PO SCH (10:01)
[2017-12-15] MEDS: CARVEDILOL 3.125 MG TABLET PO SCH ×2 (10:01→20:28)
[2017-12-15] MEDS: APIXABAN 5 MG TABLET PO SCH ×2 (10:01→20:29)
[2017-12-15] MEDS: LORATADINE 10 MG TABLET PO SCH (10:01)
[2017-12-15] MEDS: ALPRAZolam 0.5 MG TABLET PO SCH ×2 (10:02→20:29)
[2017-12-15] MEDS: CEFTAROLINE 600 MG in SODIUM CHLORIDE 0.9% 100 ML IV SCH ×2 (10:04→20:32)
[2017-12-15] MEDS: INSULIN NPH 100 UNIT/ML SUBCUT SCH (10:04)
[2017-12-15] MEDS: POLYETHYLENE GLYCOL POWDER 17 GM PACK PO SCH (10:04)
[2017-12-15] MEDS: HYDROmorphone 2 MG/1 ML VIAL IV PRN (20:24)
[2017-12-16] MEDS: LEVOTHYROXINE 150 MCG TABLET PO SCH (07:12)
[2017-12-16] MEDS: CEFTAROLINE 600 MG in SODIUM CHLORIDE 0.9% 100 ML IV SCH (08:27)
[2017-12-16] MEDS: MAGNESIUM GLUCONATE 500 MG TABLET PO SCH ×2 (08:27→22:36)
[2017-12-16] MEDS: FAMOTIDINE 20 MG TABLET PO SCH (08:28)
[2017-12-16] MEDS: CARVEDILOL 3.125 MG TABLET PO SCH ×2 (08:28→22:37)
[2017-12-16] MEDS: LORATADINE 10 MG TABLET PO SCH (08:28)
[2017-12-16] MEDS: APIXABAN 5 MG TABLET PO SCH ×2 (08:28→22:36)
[2017-12-16] MEDS: ISOSORBIDE MONONITRATE 30 MG TABLET PO SCH (08:28)
[2017-12-16] MEDS: INSULIN REGULAR 100 UNIT/ML SUBCUT SCH ×4 (08:29→22:35)
[2017-12-16] MEDS: POLYETHYLENE GLYCOL POWDER 17 GM PACK PO SCH (08:29)
[2017-12-16] MEDS: INSULIN NPH 100 UNIT/ML SUBCUT SCH (08:29)
[2017-12-16] MEDS: ASPIRIN EC 81 MG TABLET PO SCH (08:29)
[2017-12-16] MEDS: ALPRAZolam 0.5 MG TABLET PO SCH ×2 (08:29→22:37)
[2017-12-17] MEDS: cephALEXin 500 MG CAPSULE PO SCH ×2 (00:25→06:34)
[2017-12-17 05:47] LABS: Basophils # 0.1 10*3/uL (0.0-0.2); Eosinophils # 0.3 10*3/uL (0.0-0.87); Eosinophils % 6.4 % (0.00-10.9); Hematocrit 33.2 VOL% (35.7-47.0); Hemoglobin 11.2 GM/DL (12.0-16.0); Immature Granulocytes % 0.2 %; Immature Granulocytes Absolute 0.01 #; Lymphocytes % 41.4 % (21.3-54.2); Mean Corpuscular HGB Conc 33.7 GM/DL (32-36); Mean Corpuscular Hemoglobin 31 PG (27-34); Mean Corpuscular Volume 91.7 FL (87-102); Mean Platelet Volume 9.4 FL (9.6-12.0); Monocytes # 0.6 10*3/uL (0.11-0.8); Monocytes % 11.4 % (1.7-12.7); Neutrophils # 1.9 10*3/uL (1.4-7.4); Neutrophils % 39.6 % (38.7-73.9); Platelet Count 193 T/CUMM (130-400); Red Blood Count 3.62 MC/CUMM (3.8-5.5); White Blood Count 4.8 T/CUMM (4-12)
[2017-12-17 06:19] LABS: Calcium 9.3 MG/DL (8.5-10.1); Osmolality,Calculated 283.1 MOS/KG (273-304)
[2017-12-17] MEDS: LEVOTHYROXINE 150 MCG TABLET PO SCH (06:34)
[2017-12-17] MEDS: INSULIN NPH 100 UNIT/ML SUBCUT SCH (09:33)
[2017-12-17] MEDS: POLYETHYLENE GLYCOL POWDER 17 GM PACK PO SCH (09:34)
[2017-12-17] MEDS: MAGNESIUM GLUCONATE 500 MG TABLET PO SCH (09:35)
[2017-12-17] MEDS: LORATADINE 10 MG TABLET PO SCH (09:35)
[2017-12-17] MEDS: FAMOTIDINE 20 MG TABLET PO SCH (09:35)
[2017-12-17] MEDS: APIXABAN 5 MG TABLET PO SCH (09:35)
[2017-12-17] MEDS: CARVEDILOL 3.125 MG TABLET PO SCH (09:35)
[2017-12-17] MEDS: ISOSORBIDE MONONITRATE 30 MG TABLET PO SCH (09:35)
[2017-12-17] MEDS: ALPRAZolam 0.5 MG TABLET PO SCH (09:36)
[2017-12-17] MEDS: ASPIRIN EC 81 MG TABLET PO SCH (09:36)
[2017-12-17 11:42] VITALS: BP 109/58
[2017-12-17] MEDS: INSULIN REGULAR 100 UNIT/ML SUBCUT SCH ×2 (13:01→13:03)
== END 2017-12-17 12:15 | disposition home health service (06) | DRG 638 ==
LOC: N.ED 22:10 → SUATTDRO 12-11 01:33 → N.EDINP 12-11 01:33 → N.2E 12-11 02:18
PROVIDERS: ADMIT Internal Medicine; ATTEND Internal Medicine

== ENCOUNTER 2017-12-23 19:14 | Inpatient (IN) ==
[2017-12-23] MEDS ORDERED: ONDANSETRON 4 MG/2 ML VIAL IV STA (19:35)
[2017-12-23] MEDS ORDERED: PANTOPRAZOLE 40 MG VIAL IV STA (19:35)
[2017-12-23] MEDS ORDERED: SODIUM CHLORIDE 0.9% 1,000 ML IV STA (19:35)
[2017-12-23] MEDS ORDERED: DICYCLOMINE 20 MG/2 ML AMP IM ONE (19:35)
[2017-12-23] MEDS ORDERED: INSULIN REGULAR 100 UNIT/ML SUBCUT STA (20:18)
[2017-12-23 20:38] LABS: Basophils # 0.1 10*3/uL (0.0-0.2); Basophils % 0.6 % (0.0-0.8); Hematocrit 34.2 VOL% (35.7-47.0); Hemoglobin 11.3 GM/DL (12.0-16.0); Immature Granulocytes % 0.7 %; Immature Granulocytes Absolute 0.07 #; Lymphocytes # 0.7 10*3/uL (1.4-4.0); Lymphocytes % 6.9 % (21.3-54.2); Mean Corpuscular Hemoglobin 31 PG (27-34); Mean Corpuscular Volume 93.7 FL (87-102); Mean Platelet Volume 10.7 FL (9.6-12.0); Monocytes # 0.3 10*3/uL (0.11-0.8); Monocytes % 2.6 % (1.7-12.7); Neutrophils # 9.2 10*3/uL (1.4-7.4); Neutrophils % 89.2 % (38.7-73.9); Platelet Count 251 T/CUMM (130-400); Red Blood Count 3.65 MC/CUMM (3.8-5.5); Red Cell Distribution Width 12.4 % (9.3-17.3); White Blood Count 10.4 T/CUMM (4-12)
[2017-12-23 20:51] LABS: Alanine Aminotransferase 13 U/L (13-56); Albumin 3.6 G/DL (3.4-5.0); Alkaline Phosphatase 118 U/L (45-117); Amylase 27 U/L (25-115); Aspartate Amino Transferase 16 U/L (0-37); Blood Urea Nitrogen 35 MG/DL (7-18); Calcium 9.9 MG/DL (8.5-10.1); Glucose 490 MG/DL (74-106); Osmolality,Calculated 287.9 MOS/KG (273-304); Potassium 5.2 MMOL/L (3.5-5.1); Sodium 129 MMOL/L (136-145); Total Protein 6.9 G/DL (6.4-8.3)
[2017-12-23 21:32] LABS: Lactic Acid 3.6 MMOL/L (0.4-2.0)
[2017-12-23] MEDS ORDERED: MAGNESIUM SULF RIDER 4 GM in PREMIX 1 EACH IV PRN (22:44)
[2017-12-23] MEDS ORDERED: INSULIN REGULAR 100 UNIT/ML IV ONE (22:44)
[2017-12-23] MEDS ORDERED: DEXTROSE 50% 25 GM/50 ML VIAL IV PRN ×2 (22:44)
[2017-12-23] MEDS ORDERED: SODIUM PHOSPHATE INJ 17 MMOL in SODIUM CHLORIDE 0.9% 250 ML IV PRN (22:44)
[2017-12-23] MEDS ORDERED: SODIUM CHLORIDE 0.9% 500 ML IV ONE (22:44)
[2017-12-23] MEDS ORDERED: POTASSIUM CHLORIDE RIDER 10 MEQ in PREMIX 1 EACH IV PRN (22:44)
[2017-12-23] MEDS ORDERED: SODIUM BICARB INJ 100 MEQ in STERILE WATER INJ 400 ML IV PRN (22:44)
[2017-12-23] MEDS: SODIUM CHLORIDE 0.9% 1,000 ML IV SCH (23:15)
[2017-12-23 23:50] LABS: ABG Base Excess -6.9 MMOL/L (-2.5-2.5); ABG HCO3 18.8 MMOL/L (20-26); ABG Oxygen Saturation 97.3 % (95-100); ABG PCO2 31.9 MM HG (35-48); ABG PH 7.353 (7.35-7.45); ABG TCO2 16.1 MMOL/L (23-27); Pt O2 Delivery Device Room Air
[2017-12-24 00:31] LABS: Calcium 9.4 MG/DL (8.5-10.1); Osmolality,Calculated 290.5 MOS/KG (273-304); Potassium 4.6 MMOL/L (3.5-5.1)
[2017-12-24 00:47] LABS: Apearance,Urine CLEAR (Clear); Bilirubin,Urine Negative (Negative); Blood, Urine Small mg/dL (Negative); Glucose,Urine (UA) >=500 mg/dL (Negative); Ketones,Urine 80 mg/dL (Negative); Nitrite,Urine Negative (Negative); Protein,Urine Negative; Urine Color Yellow (Yellow); Urine Specific Gravity 1.014 (1.001-1.035); Urine Urobilinogen < 2.0 EU/DL (0.2-1.0)
[2017-12-24] MEDS: INSULIN REGULAR DRIP 100 ML IV SCH ×3 (00:51→11:25)
[2017-12-24] MEDS: ALPRAZolam 0.5 MG TABLET PO SCH ×3 (00:58→20:35)
[2017-12-24] MEDS: MAGNESIUM SULF RIDER 2 GM in PREMIX 1 EACH IV PRN (01:18)
[2017-12-24 04:21] LABS: Basophils % 0.2 % (0.0-0.8); Hematocrit 29.6 VOL% (35.7-47.0); Immature Granulocytes % 0.4 %; Immature Granulocytes Absolute 0.04 #; Lymphocytes # 1.4 10*3/uL (1.4-4.0); Lymphocytes % 13.8 % (21.3-54.2); Mean Corpuscular HGB Conc 33.8 GM/DL (32-36); Mean Corpuscular Hemoglobin 31 PG (27-34); Mean Corpuscular Volume 92.5 FL (87-102); Mean Platelet Volume 9.7 FL (9.6-12.0); Monocytes # 0.7 10*3/uL (0.11-0.8); Monocytes % 6.5 % (1.7-12.7); Neutrophils # 7.9 10*3/uL (1.4-7.4); Neutrophils % 79.1 % (38.7-73.9); Platelet Count 219 T/CUMM (130-400); Red Cell Distribution Width 12.3 % (9.3-17.3)
[2017-12-24 04:52] LABS: Calcium 9.2 MG/DL (8.5-10.1); Osmolality,Calculated 287.5 MOS/KG (273-304); Potassium 3.9 MMOL/L (3.5-5.1)
[2017-12-24 05:10] LABS: Thyroid Stimulating Hormone 0.145 uIU/ml (0.358-3.74)
[2017-12-24] MEDS: LEVOTHYROXINE 150 MCG TABLET PO SCH (05:56)
[2017-12-24] MEDS: SODIUM CHLORIDE 0.9% 1,000 ML IV SCH ×3 (07:57→22:32)
[2017-12-24] MEDS ORDERED: GLUCAGON 1 MG VIAL IM PRN (08:30)
[2017-12-24] MEDS ORDERED: DEXTROSE 50% 25 GM/50 ML VIAL IV PRN (08:30)
[2017-12-24] MEDS ORDERED: INSULIN REGULAR 100 UNIT/ML SUBCUT ONE (08:57)
[2017-12-24] MEDS: SULFAMETHOX/TRIMETHOPRIM 800-160 MG TABLET PO SCH ×2 (09:10→20:32)
[2017-12-24] MEDS: FAMOTIDINE 20 MG TABLET PO SCH (09:10)
[2017-12-24] MEDS: LUBIPROSTONE 24 MCG CAPSULE PO SCH ×2 (09:10→20:34)
[2017-12-24] MEDS: LORATADINE 10 MG TABLET PO SCH (09:11)
[2017-12-24] MEDS: CARVEDILOL 3.125 MG TABLET PO SCH ×2 (09:11→20:32)
[2017-12-24] MEDS: APIXABAN 5 MG TABLET PO SCH ×2 (09:11→20:35)
[2017-12-24] MEDS: MAGNESIUM GLUCONATE 500 MG TABLET PO SCH ×2 (09:11→20:32)
[2017-12-24] MEDS: LOSARTAN 25 MG TABLET PO SCH (09:11)
[2017-12-24] MEDS: FUROSEMIDE 40 MG TABLET PO SCH (09:11)
[2017-12-24] MEDS: INSULIN NPH 100 UNIT/ML SUBCUT SCH (09:12)
[2017-12-24] MEDS: ASPIRIN EC 81 MG TABLET PO SCH (09:16)
[2017-12-24] MEDS ORDERED: SODIUM BICARB INJ 100 MEQ in STERILE WATER INJ 400 ML IV PRN (10:11)
[2017-12-24] MEDS ORDERED: INSULIN REGULAR 100 UNIT/ML IV ONE (10:11)
[2017-12-24] MEDS: INSULIN REGULAR 100 UNIT/ML SUBCUT SCH ×3 (10:55→22:31)
[2017-12-24 12:50] LABS: Calcium 9.2 MG/DL (8.5-10.1); Potassium 3.4 MMOL/L (3.5-5.1)
[2017-12-24] MEDS ORDERED: INSULIN NPH 100 UNIT/ML SUBCUT ONE (14:43)
[2017-12-24 15:01] LABS: Calcium 9.3 MG/DL (8.5-10.1); Osmolality,Calculated 281.7 MOS/KG (273-304); Potassium 3.9 MMOL/L (3.5-5.1)
[2017-12-24] MEDS: DEXT 5% NACL 0.45% KCL 20 MEQ 20 MEQ/1,000 ML BAG IV SCH ×2 (15:12→23:44)
[2017-12-24 18:43] LABS: Calcium 8.9 MG/DL (8.5-10.1); Osmolality,Calculated 281.7 MOS/KG (273-304); Potassium 3.8 MMOL/L (3.5-5.1)
[2017-12-25] MEDS: INSULIN REGULAR 100 UNIT/ML SUBCUT SCH ×5 (00:19→21:17)
[2017-12-25 05:24] LABS: Basophils % 0.5 % (0.0-0.8); Eosinophils # 0.1 10*3/uL (0.0-0.87); Eosinophils % 1.2 % (0.00-10.9); Hematocrit 29.7 VOL% (35.7-47.0); Immature Granulocytes % 0.2 %; Immature Granulocytes Absolute 0.02 #; Lymphocytes # 2.6 10*3/uL (1.4-4.0); Lymphocytes % 30.6 % (21.3-54.2); Mean Corpuscular HGB Conc 33.7 GM/DL (32-36); Mean Corpuscular Hemoglobin 31 PG (27-34); Mean Corpuscular Volume 91.1 FL (87-102); Mean Platelet Volume 9.4 FL (9.6-12.0); Monocytes # 0.6 10*3/uL (0.11-0.8); Monocytes % 6.5 % (1.7-12.7); Neutrophils # 5.2 10*3/uL (1.4-7.4); Platelet Count 196 T/CUMM (130-400); Red Blood Count 3.26 MC/CUMM (3.8-5.5); Red Cell Distribution Width 12.5 % (9.3-17.3); White Blood Count 8.4 T/CUMM (4-12)
[2017-12-25 06:01] LABS: Calcium 8.8 MG/DL (8.5-10.1); Osmolality,Calculated 283.4 MOS/KG (273-304); Potassium 3.7 MMOL/L (3.5-5.1)
[2017-12-25] MEDS: LEVOTHYROXINE 150 MCG TABLET PO SCH (06:37)
[2017-12-25] MEDS: INSULIN REGULAR DRIP 100 ML IV SCH (07:00)
[2017-12-25] MEDS ORDERED: GLUCAGON 1 MG VIAL IM PRN (07:26)
[2017-12-25] MEDS ORDERED: DEXTROSE 50% 25 GM/50 ML VIAL IV PRN (07:26)
[2017-12-25] MEDS: DEXT 5% NACL 0.45% KCL 20 MEQ 20 MEQ/1,000 ML BAG IV SCH ×2 (07:28→16:01)
[2017-12-25] MEDS: CARVEDILOL 3.125 MG TABLET PO SCH ×2 (08:39→21:09)
[2017-12-25] MEDS: SULFAMETHOX/TRIMETHOPRIM 800-160 MG TABLET PO SCH ×2 (08:39→21:09)
[2017-12-25] MEDS: INSULIN NPH 100 UNIT/ML SUBCUT SCH (08:39)
[2017-12-25] MEDS: FUROSEMIDE 40 MG TABLET PO SCH (08:40)
[2017-12-25] MEDS: FAMOTIDINE 20 MG TABLET PO SCH (08:40)
[2017-12-25] MEDS: ASPIRIN EC 81 MG TABLET PO SCH (08:40)
[2017-12-25] MEDS: LORATADINE 10 MG TABLET PO SCH (08:40)
[2017-12-25] MEDS: LOSARTAN 25 MG TABLET PO SCH (08:40)
[2017-12-25] MEDS: ALPRAZolam 0.5 MG TABLET PO SCH ×2 (08:40→21:09)
[2017-12-25] MEDS: MAGNESIUM GLUCONATE 500 MG TABLET PO SCH ×2 (08:40→21:09)
[2017-12-25] MEDS: APIXABAN 5 MG TABLET PO SCH (08:40)
[2017-12-25] MEDS: LUBIPROSTONE 24 MCG CAPSULE PO SCH ×2 (08:40→21:09)
[2017-12-25] MEDS: SODIUM CHLORIDE 0.9% 1,000 ML IV SCH ×2 (08:41→16:21)
[2017-12-25] MEDS ORDERED: INSULIN NPH 100 UNIT/ML SUBCUT ONE (14:18)
[2017-12-25] MEDS ORDERED: FAMOTIDINE 20 MG TABLET PO SCH (21:00)
[2017-12-25] MEDS: PANTOPRAZOLE 40 MG VIAL IV SCH (21:15)
[2017-12-26] MEDS: DEXT 5% NACL 0.45% KCL 20 MEQ 20 MEQ/1,000 ML BAG IV SCH ×4 (00:01→12:44)
[2017-12-26] MEDS: SODIUM CHLORIDE 0.9% 1,000 ML IV SCH ×2 (04:20→06:33)
[2017-12-26] MEDS: INSULIN REGULAR DRIP 100 ML IV SCH (04:21)
[2017-12-26] MEDS: LEVOTHYROXINE 150 MCG TABLET PO SCH (06:32)
[2017-12-26 06:47] LABS: Basophils % 0.7 % (0.0-0.8); Eosinophils # 0.2 10*3/uL (0.0-0.87); Eosinophils % 3.9 % (0.00-10.9); Hematocrit 31.2 VOL% (35.7-47.0); Hemoglobin 10.6 GM/DL (12.0-16.0); Immature Granulocytes % 0.2 %; Immature Granulocytes Absolute 0.01 #; Lymphocytes # 1.4 10*3/uL (1.4-4.0); Lymphocytes % 31.3 % (21.3-54.2); Mean Corpuscular Hemoglobin 31 PG (27-34); Mean Corpuscular Volume 91.2 FL (87-102); Mean Platelet Volume 10.5 FL (9.6-12.0); Monocytes # 0.5 10*3/uL (0.11-0.8); Monocytes % 11.1 % (1.7-12.7); Neutrophils # 2.3 10*3/uL (1.4-7.4); Neutrophils % 52.8 % (38.7-73.9); Platelet Count 191 T/CUMM (130-400); Red Blood Count 3.42 MC/CUMM (3.8-5.5); Red Cell Distribution Width 12.2 % (9.3-17.3); White Blood Count 4.3 T/CUMM (4-12)
[2017-12-26 07:12] LABS: Calcium 8.7 MG/DL (8.5-10.1); Osmolality,Calculated 285.5 MOS/KG (273-304); Potassium 4.2 MMOL/L (3.5-5.1)
[2017-12-26] MEDS: INSULIN REGULAR 100 UNIT/ML SUBCUT SCH ×2 (07:26→11:27)
[2017-12-26] MEDS: LOSARTAN 25 MG TABLET PO SCH (10:23)
[2017-12-26] MEDS: MAGNESIUM GLUCONATE 500 MG TABLET PO SCH ×2 (10:23→22:13)
[2017-12-26] MEDS: ASPIRIN EC 81 MG TABLET PO SCH (10:23)
[2017-12-26] MEDS: CARVEDILOL 3.125 MG TABLET PO SCH ×2 (10:23→21:37)
[2017-12-26] MEDS: LUBIPROSTONE 24 MCG CAPSULE PO SCH ×2 (10:23→21:36)
[2017-12-26] MEDS: LORATADINE 10 MG TABLET PO SCH (10:23)
[2017-12-26] MEDS: FUROSEMIDE 40 MG TABLET PO SCH (10:23)
[2017-12-26] MEDS: SULFAMETHOX/TRIMETHOPRIM 800-160 MG TABLET PO SCH ×2 (10:24→21:36)
[2017-12-26] MEDS: ALPRAZolam 0.5 MG TABLET PO SCH ×2 (10:24→21:36)
[2017-12-26] MEDS: PANTOPRAZOLE 40 MG VIAL IV SCH ×2 (10:24→21:38)
[2017-12-26] MEDS: INSULIN NPH 100 UNIT/ML SUBCUT SCH ×2 (10:46→21:40)
[2017-12-26] MEDS ORDERED: PROPOFOL 200 MG/20 ML VIAL IV ONE (11:00)
[2017-12-26] MEDS ORDERED: LIDOCAINE 1% 5 ML VIAL ONE (11:00)
[2017-12-26] MEDS: MAGNESIUM SULF RIDER 2 GM in PREMIX 1 EACH IV PRN (11:03)
[2017-12-26] MEDS ORDERED: DEXTROSE 50% 25 GM/50 ML VIAL IV PRN (16:05)
[2017-12-26] MEDS ORDERED: GLUCAGON 1 MG VIAL IM PRN (16:05)
[2017-12-26] MEDS: INSULIN LISPRO 100 UNIT/ML SUBCUT SCH (16:51)
[2017-12-26] MEDS ORDERED: INSULIN NPH 100 UNIT/ML SUBCUT SCH (21:00)
[2017-12-27] MEDS: LEVOTHYROXINE 150 MCG TABLET PO SCH (05:59)
[2017-12-27] MEDS: INSULIN LISPRO 100 UNIT/ML SUBCUT SCH ×2 (07:57→12:25)
[2017-12-27] MEDS: LUBIPROSTONE 24 MCG CAPSULE PO SCH (09:50)
[2017-12-27] MEDS: ALPRAZolam 0.5 MG TABLET PO SCH (09:51)
[2017-12-27] MEDS: CARVEDILOL 3.125 MG TABLET PO SCH (09:51)
[2017-12-27] MEDS: LORATADINE 10 MG TABLET PO SCH (09:51)
[2017-12-27] MEDS: FUROSEMIDE 40 MG TABLET PO SCH (09:51)
[2017-12-27] MEDS: ASPIRIN EC 81 MG TABLET PO SCH (09:51)
[2017-12-27] MEDS: LOSARTAN 25 MG TABLET PO SCH (09:51)
[2017-12-27] MEDS: SULFAMETHOX/TRIMETHOPRIM 800-160 MG TABLET PO SCH (09:51)
[2017-12-27] MEDS: PANTOPRAZOLE 40 MG VIAL IV SCH (09:52)
[2017-12-27] MEDS: INSULIN NPH 100 UNIT/ML SUBCUT SCH (09:57)
[2017-12-27 11:33] VITALS: BP 106/68
[2017-12-27] MEDS: MAGNESIUM GLUCONATE 500 MG TABLET PO SCH (12:26)
== END 2017-12-27 13:12 | disposition home health service (06) | DRG 638 ==
LOC: EDBD → EDUNIT# → N.ED 19:14 → N.EDINP 21:45 → N.CC 12-24 02:53 → N.3E 12-26 13:56
PROVIDERS: ADMIT Internal Medicine; ATTEND Internal Medicine